=== PATIENT | male | born 1945 | race African-American/Black ===

== ENCOUNTER 2016-12-31 13:54 | Emergency (ER) | payer MEDICARE, OTHER ==
[~2016-12-31 13:54] MED LIST: ASPI-556 PO; BUME1TAB30 PO; BUPR100SR PO; CARV25 PO; DIGO125T PO; INSLAN SQ; LISI-661 PO; LORA10TA7 PO; METF500T4 PO; METO-325 PO; MONT10TA21 PO; OMEP20 PO; OXYC-158 PO; SACU1TAB PO; SACU1TAB4 PO; SIMV-260 PO; TAPE100T9 PO; TEMA15CA PO; TRAM50TA4 PO
== END 2016-12-31 14:48 | disposition left against medical advice (07) ==
LOC: EMS 13:56
DX: R73.9 Hyperglycemia, unspecified (principal); Z53.21 Procedure and treatment not carried out due to patient leaving prior to being seen by health care provider

== ENCOUNTER 2017-02-20 14:02 | Emergency (ER) | payer MEDICARE, OTHER ==
[~2017-02-20] VITALS: Ht 167.6 cm; Wt 74.0 kg
[2017-02-20 14:12] LABS: GLUCOSE,POINT OF CARE 372 MG/DL (70-110)
[2017-02-20 14:44] LABS: BASOPHILS % (AUTO) 0.5 % (0.0-2.0); EOSINOPHILS % (AUTO) 0.9 % (1.0-6.0); HEMATOCRIT 42.3 % (41-53); HEMOGLOBIN 13.6 g/dL (13.5-17.5); LYMPHOCYTES # (AUTO) 0.9 K/uL (1.0-4.8); LYMPHOCYTES % (AUTO) 18.1 % (22.0-44.0); MEAN CORPUSCULAR HEMOGLOBIN 29.9 pg (26.0-34.0); MEAN CORPUSCULAR HGB CONC 32.1 G/dL (31.0-37.0); MEAN CORPUSCULAR VOLUME 93 fL (80-100); MONOCYTES # (AUTO) 0.6 K/uL (0.1-1.0); MONOCYTES % (AUTO) 11.4 % (2.0-9.0); NEUTROPHILS # (AUTO) 3.5 K/uL (1.8-7.7); NEUTROPHILS % (AUTO) 69.1 % (40.0-70.0); PLATELET COUNT (AUTO) 302 K/uL (150-450); RED BLOOD CELL COUNT(AUTO) 4.55 MIL/uL (4.50-5.90); RED CELL DISTRIBUTION WIDTH 14.4 % (11.5-14.5)
[2017-02-20 14:57] LABS: ALANINE AMINOTRANSFERASE 25 U/L (12-78); ALBUMIN 3.1 g/dL (3.4-5.0); ANION GAP 12 mmol/L (8-16); ASPARTATE AMINOTRANSFERASE 30 U/L (15-37); BILIRUBIN,TOTAL 0.9 mg/dL (0.1-1.0); CALCIUM, TOTAL 8.4 mg/dL (8.8-10.5); CARBON DIOXIDE 24 mmol/L (22-29); CHLORIDE 90 mmol/L (98-107); CREATININE 1.35 mg/dL (0.60-1.30); GLOMERULAR FILTR. RATE CALC > 60 mL/min (>60); POTASSIUM 4.1 mmol/L (3.5-5.1); SODIUM SERUM 126 mmol/L (136-145); TOTAL PROTEIN, SERUM 7.7 g/dL (6.4-8.2); UREA NITROGEN, BLOOD 16 mg/dL (7-18)
[2017-02-20 15:23] LABS: B-TYPE NATRIURETIC PEPTIDE 100 pg/mL (0-100)
[2017-02-20] MEDS ORDERED: SODIUM CHLORIDE 0.9% 1,000 ML IV ONE ×2 (15:30→18:15)
[2017-02-20 15:34] LABS: APPEARANCE,URINE CLEAR (CLEAR); GLUCOSE, URINE (UA) >=1000 mg/dL (NEGATIVE); KETONES,URINE 15 mg/dL (NEGATIVE); LEUKOCYTE ESTERASE ,URINE NEGATIVE (NEGATIVE); OCCULT BLOOD,URINE NEGATIVE (NEGATIVE); PROTEIN,URINE NEGATIVE (NEGATIVE)
[2017-02-20 15:45] LABS: DIGOXIN < 0.20 ng/mL (0.90-2.00)
[2017-02-20 15:45] LABS: HYALINE CASTS, URINE 0-2 /LPF (None Seen); SQUAMOUS EPITHELIAL CELL,UR Rare /LPF (None Seen)
[2017-02-20 15:48] LABS: RBC,URINE None Seen /HPF (0-2); WBC,URINE 0-2 /HPF (0-5)
[2017-02-20 17:07] LABS: GLUCOSE,POINT OF CARE 371 MG/DL (70-110)
[2017-02-20] MEDS ORDERED: INSULIN REGULAR, HUMAN 100 UNITS/ML IVP ONE (17:30)
[2017-02-20 20:02] LABS: GLUCOSE,POINT OF CARE 244 MG/DL (70-110)
[2017-02-20 20:14] VITALS: BP 135/99
== END 2017-02-20 20:15 | disposition home or self-care (01) ==
LOC: EMS 14:05
DX: R06.02 Shortness of breath (principal); E11.65 Type 2 diabetes mellitus with hyperglycemia; I10 Essential (primary) hypertension; E78.00 Pure hypercholesterolemia, unspecified; Z79.4 Long term (current) use of insulin; Z88.1 Allergy status to other antibiotic agents
CPT/HCPCS: 36415; 71010; 80053; 80162; 81001; 82948; 82962; 83690; 83880; 84484; 85025; 85379; 87040; 93005; 96361; 96374; 99285; J1815; J7030

== ENCOUNTER 2017-09-28 15:36 | Emergency (ER) | payer MEDICARE, OTHER ==
[~2017-09-28] VITALS: Ht 165.1 cm; Wt 72.7 kg
[~2017-09-28 15:36] MED LIST changes: +AUD NEB; +BUME1TAB17 PO; -BUME1TAB30 PO; +D-ME118S13 PO; -DIGO125T PO; +DIPH25 PO; +IPRNEB NEB; -METF500T4 PO; -METO-325 PO; +PANT40TA25 PO; -SACU1TAB PO; -SACU1TAB4 PO; -TAPE100T9 PO; -TEMA15CA PO
[2017-09-28 15:52] LABS: GLUCOSE,POINT OF CARE 200 MG/DL (70-110)
[2017-09-28] MEDS ORDERED: BUPIVACAINE HCL/PF 0.25% 10 ML VIAL INJ ONE (17:00)
[2017-09-28] MEDS ORDERED: POVIDONE-IODINE 10% 15 ML SOLUTION UD TP ONE (17:00)
[2017-09-28] MEDS ORDERED: HYDROCODONE/ACETAMINOPHEN 5-325 MG TABLET PO ONE (17:00)
[2017-09-28] MEDS ORDERED: BENZOCAINE 20% 50 MCG/SPRAY 57 GM TP ONE (17:00)
[2017-09-28 18:50] VITALS: BP 127/74
== END 2017-09-28 18:58 | disposition home or self-care (01) ==
LOC: EMS 15:38
DX: K64.5 Perianal venous thrombosis (principal); E11.9 Type 2 diabetes mellitus without complications; E78.00 Pure hypercholesterolemia, unspecified; I11.0 Hypertensive heart disease with heart failure; I50.9 Heart failure, unspecified; J44.9 Chronic obstructive pulmonary disease, unspecified; Z79.4 Long term (current) use of insulin; Z88.1 Allergy status to other antibiotic agents
CPT/HCPCS: 46083; 82962; 99284; J3490